=== PATIENT | female | born 1930 | race Asian ===

== ENCOUNTER 2017-07-11 00:06 | Inpatient (IN) | payer MEDICARE, MEDICAID ==
[~2017-07-11] VITALS: Ht 175.3 cm; Wt 68.0 kg
[2017-07-11] VITALS (15 sets, daily range): BP systolic 81–137; BP diastolic 51–89
[2017-07-11] MEDS ORDERED: Digoxin 0.5mg/2ml Inj IVP ONE ×2 (00:45→23:00)
[2017-07-11] MEDS ORDERED: Cefepime HCl 2 GM in NS 110 ML IV ONE (00:45)
[2017-07-11] MEDS ORDERED: Vancomycin 1 GM in NS 275 ML IVPB ONE (00:45)
[2017-07-11] MEDS ORDERED: Cefepime 2gm ONE (01:25)
--- NOTE | 2017-07-11 01:25 | Emergency Room Report ---
History of Present Illness General Chief Complaint: Dyspnea/Respdistress Source: Medical Record, EMS Present Illness HPI 86-year-old female, history of diabetes, hypertension, CVA with right-sided hemiparesis, bedbound, presenting with shortness of breath. EMS states when they arrived she was satting 92 on room air. Also was found to be in A. fib with RVR. No other history is able to be obtained. Patient is full code coming from [facility] Allergies: Coded Allergies: No Known Allergies (Unverified , 07/11/17) Patient History Past Medical History: see triage record Past Surgical History: none Pertinent Family History: none Last Menstrual Period: n/a Reviewed Nursing Documentation: PMH: Agreed, PSxH: Agreed Nursing Documentation-PMH Past Medical History: No Stated History Hx Hypertension: Yes Hx Diabetes: Yes - DM2 Hx Cerebrovascular Accident: Yes Review of Systems All Other Systems: limited - dementia Physical Exam Vital Signs Date Time Temp Pulse Resp B/P (MAP) Pulse Ox O2 Delivery O2 Flow Rate FiO2 07/11/17 00:06 120 16 111/75 95 Non-Rebreather 15.0 07/11/17 00:54 40 07/11/17 01:12 99.7 Sp02 EP Interpretation: abnormal General Appearance: other - resp distress, awake but not talking, Chronically Ill Respiratory: other - tachypneic, R sided crackles, retractions Cardiovascular #1: tachycardia, irregularly irregular Gastrointestinal: other - no grimace to deep palpation Neurologic: other - awake, not ff commands Procedures Critical Care Time Critical Care Time 40 minutes of CC time 86-year-old female shortness of breath VS: Tachycardic, hypotensive, tachypnea PLAN: IV access, labs, lactate, troponin, Blood/Urine Cx, Abx, IVF Anticipate admission to Tele vs. [facility] CC time also includes review of labs, review of EMR, discussion with family and paperwork from SNF, d/w hospitalist CC could include dosing of pressors, additional Abx CC time does not include procedures Medical Decision Making Diagnostic Impression: Primary Impression: Atrial fibrillation with rapid ventricular response Additional Impressions: Severe sepsis Respiratory distress ER Course 86-year-old female presenting with shortness of breath DDX: ACS, CHF Sepsis 2/2 UTI, PNA, bacteremia, will also consider intra-abdominal pathology such as colitis / diverticulitis / acalculous cholecystitis if no other course found but at this time abdomen soft, NT, ND. Plan: BiPAP Obtain labs including cbc, bmp, blood culture, blood gas, lactate, ua, ucx CXR EKG Broad spectrum ABX ER course: Patient requires BIPAP for respiratory support Patient initially hypotensive, fluids given, improved A. fib with RVR, was 150s, now improved to 100-110 with fluids however again went up to 130s-140s., dig given Given broad spectrum abx - vancomycin and cefepime Chest x-ray with right-sided pneumonia +afib 140s, cardizem given Sepsis Re-examination Time: 2:48 AM VS: Temp 98 HR 138 BP 131/84 RR 25 CVS: Atrial fibrillation Respiratory: Crackles right lung Peripheral pulses: 2+ radial Capillary refill: <2 seconds Skin exam: warm, dry, no rash, not mottled Disposition: Patient will admitted to [facility] Patient requires close monitoring of respiratory/hemodynamic status and continuation of IV antibiotics. D/W Hospitalist Dr Gama (as patients PMD is Dr Benedict) Please note that this Emergency Department Report was dictated using [employer] usher technology software, occasionally this can lead to erroneous entry secondary to interpretation by the dictation equipment. EKG Diagnostic Results EP Interpretation: Yes Rate: Tachycardic Rhythm: Atrial fibrillation ST Segments: No acute changes ASA given to patient: No Rhythm Strip EP Interpretation: Yes Rate: 110 Rhythm: Atrial fibrillation Chest X-ray CXR: Ordered: Yes 1 view Indication: Chest pain EP interpretation: Yes Interpretation: Right lower lobe pneumonia, pacemaker noted Impression: Right lower lobe pneumonia Electronically signed by Naeem Panda MD Laboratory Tests Test 07/11/17 00:51 07/11/17 02:07 07/11/17 03:52 White Blood Count 14.4 K/UL (4.8-10.8) H Red Blood Count 4.84 M/UL (4.20-5.40) Hemoglobin 15.1 G/DL (12.0-16.0) Hematocrit 44.1 % (37.0-47.0) Mean Corpuscular Volume 91 FL (80-99) Mean Corpuscular Hemoglobin 31.2 PG (27.0-31.0) H Mean Corpuscular Hemoglobin Concent 34.2 G/DL (32.0-36.0) Red Cell Distribution Width 11.3 % (11.6-14.8) L Platelet Count 366 K/UL (150-450) Mean Platelet Volume 7.3 FL (6.5-10.1) Neutrophils (%) (Auto) % (45.0-75.0) Lymphocytes (%) (Auto) % (20.0-45.0) Monocytes (%) (Auto) % (1.0-10.0) Eosinophils (%) (Auto) % (0.0-3.0) Basophils (%) (Auto) % (0.0-2.0) Prothrombin Time 11.3 SEC (9.30-11.50) Prothrombin Time INR 1.1 (0.9-1.1) PTT 35 SEC (23-33) H Sodium Level 127 MMOL/L (136-145) L Potassium Level 4.0 MMOL/L (3.5-5.1) Chloride Level 93 MMOL/L (98-107) L Carbon Dioxide Level 18 MMOL/L (21-32) L Anion Gap 16 mmol/L (5-15) H Blood Urea Nitrogen 27 mg/dL (7-18) H Creatinine 1.8 MG/DL (0.55-1.30) H Estimate Glomerular Filtration Rate mL/min (>60) Glucose Level 164 MG/DL (74-106) H Lactic Acid Level 5.30 mmol/L (0.66-2.22) H 4.50 mmol/L (0.66-2.22) H Calcium Level 7.9 MG/DL (8.5-10.1) L Total Bilirubin 0.6 MG/DL (0.2-1.0) Aspartate Amino Transferase (AST) 37 U/L (15-37) Alanine Aminotransferase (ALT) 24 U/L (12-78) Alkaline Phosphatase 78 U/L (46-116) Total Creatine Kinase 618 U/L (26-308) H Troponin I 0.036 ng/mL (0.000-0.056) Pro-B-Type Natriuretic Peptide 67395 pg/mL (0-125) H Total Protein 6.8 G/DL (6.4-8.2) Albumin 2.7 G/DL (3.4-5.0) L Globulin 4.1 g/dL Albumin/Globulin Ratio 0.7 (1.0-2.7) L Urine Color Pale yellow Urine Appearance Clear Urine pH 6 (4.5-8.0) Urine Specific [place] 1.010 (1.005-1.035) Urine Protein 1+ (NEGATIVE) H Urine Glucose (UA) Negative (NEGATIVE) Urine Ketones Negative (NEGATIVE) Urine Occult Blood 1+ (NEGATIVE) H Urine Nitrite Negative (NEGATIVE) Urine Bilirubin Negative (NEGATIVE) Urine Urobilinogen Normal MG/DL (0.0-1.0) Urine Leukocyte Esterase 1+ (NEGATIVE) H Urine RBC 0-2 /HPF (0 - 2) Urine WBC 2-4 /HPF (0 - 2) Urine Squamous Epithelial Cells Few /LPF (NONE/OCC) Urine Bacteria None /HPF (NONE) Last Vital Signs Date Time Temp Pulse Resp B/P (MAP) Pulse Ox O2 Delivery O2 Flow Rate FiO2 07/11/17 01:12 99.7 122 24 100/62 98 Bi-pap 15.0 40 Disposition: ADMITTED INPATIENT Condition: Serious Naeem Panda M.D. Jul 11, 2017 01:25
[2017-07-11 01:37] LABS: HEMATOCRIT 44.1 % (37.0-47.0); HEMOGLOBIN 15.1 G/DL (12.0-16.0); MEAN CORPUSCULAR VOLUME 91 FL (80-99); PLATELET COUNT 366 K/UL (150-450); RED BLOOD COUNT 4.84 M/UL (4.20-5.40); RED CELL DISTRIBUTION WIDTH 11.3 % (11.6-14.8); WHITE BLOOD COUNT 14.4 K/UL (4.8-10.8)
[2017-07-11 01:50] LABS: INR 1.1 (0.9-1.1)
[2017-07-11 01:56] LABS: ANION GAP 16 mmol/L (5-15); BLOOD UREA NITROGEN 27 mg/dL (7-18); CALCIUM 7.9 MG/DL (8.5-10.1); CARBON DIOXIDE 18 MMOL/L (21-32); CHLORIDE 93 MMOL/L (98-107); CREATININE 1.8 MG/DL (0.55-1.30); SODIUM 127 MMOL/L (136-145)
[2017-07-11 02:07] LABS: ALANINE AMINOTRANSFERASE 24 U/L (12-78); ALBUMIN 2.7 G/DL (3.4-5.0); ALBUMIN/GLOBULIN RATIO 0.7 (1.0-2.7); ALKALINE PHOSPHATASE 78 U/L (46-116); ASPARTATE AMINO TRANSFERASE 37 U/L (15-37); BILIRUBIN,TOTAL 0.6 MG/DL (0.2-1.0); CREATINE KINASE 618 U/L (26-308)
[2017-07-11] MEDS ORDERED: Vancomycin 1gm inj IVPB ONE (02:16)
[2017-07-11 02:25] LABS: APPEARANCE,URINE CLEAR; BILIRUBIN, URINE NEGATIVE (NEGATIVE); COLOR,URINE PALE YELLOW; GLUCOSE, URINE (UA) NEGATIVE (NEGATIVE); KETONES,URINE NEGATIVE (NEGATIVE); NITRITE,URINE NEGATIVE (NEGATIVE); PH,URINE 6 (4.5-8.0); PROTEIN,URINE 1+ (NEGATIVE); UROBILINOGEN,URINE NORMAL MG/DL (0.0-1.0)
[2017-07-11 02:50] LABS: LEUKOCYTE ESTERASE ,URINE 1+ (NEGATIVE)
[2017-07-11] MEDS ORDERED: dilTIAZem HCl 25mg/5ml Inj IVP ONE ×3 (03:45→06:30)
[2017-07-11] MEDS ORDERED: Morphine Sulfate 4mg/ml Inj IVP ONE (06:30)
[2017-07-11] MEDS ORDERED: ACETAMINOPHEN-1 EAC1 ORAL (06:50)
[2017-07-11] MEDS ORDERED: AMLODIPINE BESYL5 MG ORAL (06:50)
[2017-07-11] MEDS ORDERED: PLAVIX75 MG ORAL (06:51)
[2017-07-11] MEDS ORDERED: SIMVASTATIN20 MG ORAL (07:01)
[2017-07-11] MEDS ORDERED: IBUPROFEN600 MG ORAL (07:01)
[2017-07-11] MEDS ORDERED: METOPROLOL TAR100 M1 ORAL (07:01)
[2017-07-11] MEDS ORDERED: CREON DR 12,001 EACH PO (07:01)
[2017-07-11] MEDS ORDERED: NORCO 5-325 TA1 EACH ORAL (07:01)
[2017-07-11] MEDS ORDERED: Sodium Chloride 500ML 500 ML IV ONE ×2 (07:45→21:00)
[2017-07-11] MEDS ORDERED: Ascorbic Acid 500mg tab ORAL ONE (07:45)
[2017-07-11] MEDS ORDERED: Hydrocortisone 100mg Inj IV ONE (07:45)
--- NOTE | 2017-07-11 11:08 | Diagnostic Imaging Report ---
Indication: Dyspnea Comparison: None A single view chest radiograph was obtained. Findings: Patchy infiltrate at the right lung base demonstrated. Heart size is normal. The aorta is ectatic and calcified. There is a pacemaker on the left. Bones are slightly osteopenic. IMPRESSION: Right basilar infiltrate
[2017-07-11] MEDS: Sodium Chloride 500ML 550 ML IV SCH ×2 (14:55→18:51)
[2017-07-11] MEDS: Albuterol/Ipratropium 3ml neb HHN SCH ×3 (14:57→23:32)
--- NOTE | 2017-07-11 21:53 | Emergency Room Report ---
History of Present Illness General Chief Complaint: Dyspnea/Respdistress Source: Family Member Present Illness Allergies: Coded Allergies: No Known Allergies (Unverified , 07/11/17) Patient History Last Menstrual Period: n/a Now: No Nursing Documentation-[facility] Past Medical History: No Stated History Hx Hypertension: Yes Hx Diabetes: Yes - DM2 Hx Cancer: No Hx Gastrointestinal Problems: No Hx Cerebrovascular Accident: Yes Physical Exam Vital Signs Date Time Temp Pulse Resp B/P (MAP) Pulse Ox O2 Delivery O2 Flow Rate FiO2 07/11/17 00:06 120 16 111/75 95 Non-Rebreather 15.0 07/11/17 00:54 40 07/11/17 01:12 99.7 Procedures Central Line Central Line : Consent: Emergent Central Line Lumen: triple Maximal Sterile Barrier Tech: yes cap, yes mask, yes sterile gown, yes sterile gloves, yes large sterile sheet, yes hand hygiene, yes chlorhexidine prep Central Line Postion: femoral (R) Complications: none Central Line Post Position: sutured Attempts: One Patient Tolerated: Well Complications: None Intubation Intubation : Consent: Emergent Intubation Method: orotracheal Tube Size (cm): 8.0 Medications: Succinylcholine Breath Sounds after Intubation: equal Intubation Complications: no complications Post Intubation Xray: Yes Attempts: One Patient Tolerated: Well Complications: None Medical Decision Making Diagnostic Impression: Primary Impression: Atrial fibrillation with rapid ventricular response Additional Impressions: Respiratory distress Severe sepsis Last Vital Signs Date Time Temp Pulse Resp B/P (MAP) Pulse Ox O2 Delivery O2 Flow Rate FiO2 07/11/17 21:35 113 16 100 07/11/17 20:00 97.5 97/51 98 Bi-pap 07/11/17 19:20 15.0 Disposition: ADMITTED INPATIENT Condition: Serious Referrals: NON PHYSICIAN (PCP) PRICILLA KITCHEN D.O. Jul 11, 2017 21:53
[2017-07-11] MEDS ORDERED: Succinylcholine 20mg/ml 10ml vial IV ONE (22:00)
[2017-07-11] MEDS ORDERED: Cefepime HCl 1 GM in D5W 55 ML IVPB SCH (22:00)
[2017-07-11] MEDS ORDERED: Cefepime 1gm vial ONE (22:39)
[2017-07-12] VITALS: BP 97/51
[2017-07-12 00:15] VITALS: BP 59/51
[2017-07-12] MEDS ORDERED: Sodium Bicarbonate 100 ML in D5W 1000ml 1,000 ML IV SCH (00:15)
[2017-07-12 00:30] VITALS: BP 0/0
[2017-07-12] MEDS ORDERED: Tubing IV Secondary IV ONE (00:33)
[2017-07-12] MEDS ORDERED: Sodium Bicarbonate 8.4% 50ml Inj ONE (00:33)
[2017-07-12] MEDS ORDERED: NS 500ML ONE (00:33)
[2017-07-12] MEDS ORDERED: Succinylcholine 20mg/ml 10ml vial ONE (00:33)
[2017-07-12 00:45] VITALS: BP 0/0
[2017-07-12] MEDS ORDERED: Vancomycin 1gm in D5W 275ml IVPB SCH (02:00)
--- NOTE | 2017-07-12 02:15 | History and Physical Report ---
DATE OF ADMISSION: 07/11/2017 CONSULTING PHYSICIAN: Kleber Gama M.D. REQUESTING PHYSICIAN: Dickson Pederson M.D. REASON FOR EVALUATION: Sepsis, shock, lactic acidosis, and elevated natriuretic peptide assay. HISTORY OF PRESENT ILLNESS: This is a [place] female, age 86, who lived independently up until about a month ago. At that point, she required hospitalization at [facility] for urinary tract infection. She apparently required admission to a longterm facility subsequently for rehabilitation. Late last night, she developed cough, congestion, and shortness of breath and was transferred to this emergency room for further assessment. In the emergency room, she was noted to have a rapid heart rate and low blood pressure readings requiring placement of a central venous access in the right femoral region. She was noted to have respiratory distress and started on BiPAP. Further concerns included rapid atrial fibrillation. I have been asked to assist with further cardiovascular care. PAST MEDICAL HISTORY: Type 2 diabetes mellitus, osteoarthritis, degenerative disk disease, cerebrovascular disease with history of cerebrovascular accident, hypertension, and permanent pacemaker. MEDICATIONS: Prior to admission, reviewed and reconciled. ALLERGIES: None. FAMILY HISTORY: Noncontributory. SOCIAL HISTORY: Negative for smoking, alcohol, or substance abuse. REVIEW OF SYSTEMS: Presently, not obtainable from the patient. Pertinent data from available records and family members is outlined above. PHYSICAL EXAMINATION: VITAL SIGNS: Blood pressure 97/51, pulse 113, respirations 16, and afebrile. She is on BiPAP support. HEENT: Temporal wasting. Pale conjunctivae. Oropharynx clear. NECK: Supple. Jugular venous pressure is difficult to assess. Accessory muscle use is noted. LUNGS: With diminished breath sounds. Rhonchi and rales at the right. CARDIAC: Irregularly irregular rhythm. Rapid rate. Normal S1 and S2. No murmur. ABDOMEN: Soft and nontender. No guarding. No rebound. EXTREMITIES: No edema. Distal pulses palpable. Capillary refill significantly diminished. LABORATORY AND DIAGNOSTIC DATA: White count 14.4 and hemoglobin 15.1. ABG is pending. Sodium 127, potassium 4, bicarbonate 18, BUN 27 and creatinine 1.8. Lactic acid 5.3. Glucose 164. Troponin 0.036. Pro-natriuretic peptide 13,500. Urinalysis with only 2 to 4 white cells. Radiograph of the chest, patchy infiltrate at the right base with a pacemaker on the left side. IMPRESSION: 1. Acute respiratory insufficiency. 2. Hypoxia. 3. Healthcare-acquired pneumonia. 4. Possible aspiration. 5. Sepsis. 6. Shock. 7. Lactic acidosis. 8. paroxysmal atrial fibrillation. 9. Permanent pacemaker. 10. Acute on chronic diastolic congestive heart failure. 11. Condition is critical. 12. Prognosis guarded. PLAN: 1. BiPAP support. 2. Panculture. 3. Broad-spectrum antibiotics. 4. DVT and stress ulcer prophylaxes. 5. May need to digitalize for rate control. 6. Volume support by IV route. 7. If blood pressure fails to improve, may need to consider pressors. Kleber Gama M.D. DR: VELMA JOB#: [id number] CC: MUKUND
--- NOTE | 2017-07-12 02:15 | Consultation ---
DATE OF CONSULTATION: 07/11/2017 PULMONARY CONSULTATION CONSULTING PHYSICIAN: Michael Salmon M.D. REFERRING PHYSICIAN: Kleber Gama M.D. REASON FOR CONSULTATION: Respiratory insufficiency, dyspnea, and shortness of breath. HISTORY OF PRESENT ILLNESS: The patient is an 86-year-old female with history of diabetes and hypertension with CVA and focal weakness. The patient is essentially bed bound and presented with increasing shortness of breath. The patient is noted to be hypoxemic on arrival and also in rapid atrial fibrillation. The patient is seen and evaluated in the fpc. The [facility] chart as well as ER notes were reviewed. The patient does have multiple medical problems and was brought in with diagnoses of sepsis, urinary tract infection, and pneumonia. The patient was placed on BiPAP and now admitted to the [facility]. I was called to assist to evaluate further and to assist with respiratory management. The patient is unable to give much in the way of history at this time. The findings were reviewed. The events were fairly acute in nature. The patient had no clear evidence of aspiration event. PAST MEDICAL HISTORY: Notable for diabetes, history of CVA, history of atrial fibrillation, hypertension, and history of focal weakness. MEDICATIONS: Reviewed. ALLERGIES: Reviewed. SOCIAL HISTORY: Difficult to obtain, however, the patient . She is mostly bed bound. REVIEW OF SYSTEMS: Difficult to obtain due to her underlying dementia. PHYSICAL EXAMINATION: GENERAL: A well-developed female with advanced age. VITAL SIGNS: Blood pressure 110/66 , O2 saturation 93% to 100%, the patient is currently on BiPAP, heart rate is 110, and temperature 98.1. HEENT: Fairly negative. NECK: Supple. LUNGS: With scattered rhonchi. Moderate air entry. CARDIAC: S1 and S2. Tachycardic without murmurs, rubs, or gallops. Somewhat irregular. ABDOMEN: Soft, nontender, and nondistended. EXTREMITIES: No cyanosis or clubbing. No significant edema. NEUROLOGIC: No focal weakness. LABORATORY DATA: Reviewed. Sodium 137, BUN 27, and creatinine 1.8. Lactic acid 5.3. The patient's white count 14.4, hematocrit 44, and platelets of 366. Urinalysis with 4+ protein. IMPRESSION: 1. Respiratory failure. 2. Pulmonary edema. 3. Right basilar infiltrate. 4. Electrolyte imbalance. 5. Lactic acidosis. 6. Possible sepsis. 7. Leukocytosis, again suggestive of sepsis. RECOMMENDATION: Supportive care. Empiric antibiotics. Follow clinically. Monitor for change and recommend further. Consider further hydrocortisone as needed. Follow up arterial blood gases and acid-base exchange. When stable, we will hope to take the patient off BiPAP. We will obtain arterial blood gases at baseline and assess for change. Michael Salmon M.D. DR: CHINO JOB#: [id number] CC:
--- NOTE | 2017-07-12 08:54 | Diagnostic Imaging Report ---
Indication: Tube placement Comparison: 07/11/2017, 01:14 A single view chest radiograph was obtained. Findings: Interval endotracheal intubation, ET tube tip 2.9 cm above the casey. There is interval worsening of aeration of the right lung with development of patchy opacities involving the upper mid lung as well as the previously seen right lower lung opacity. There is no pneumothorax. No large pleural effusion. There is patchy opacity at the left base. The bones are diffusely demineralized. There is mild scoliosis in degenerative change of the spine. Heart size and mediastinal contours are stable. Atherosclerotic vascular calcification is again noted. Left-sided pacemaker unchanged in position. IMPRESSION: Satisfactory endotracheal intubation. Interval worsening of aeration with increased right-sided patchy airspace opacities, now involving the right lower, mid and upper lung. New patchy opacities at the left base.
[2017-07-12] MEDS ORDERED: Digoxin 0.5mg/2ml Inj IVP SCH (09:00)
[2017-07-12] MEDS ORDERED: Heparin 5000 units/ml inj SUBQ SCH (09:00)
--- NOTE | 2017-07-13 10:48 | Emergency Room Report ---
History of Present Illness General Chief Complaint: Dyspnea/Respdistress Source: Family Member Present Illness Allergies: Coded Allergies: No Known Allergies (Unverified , 07/11/17) Patient History Last Menstrual Period: n/a Now: No Nursing Documentation-[facility] Past Medical History: No Stated History Hx Hypertension: Yes Hx Diabetes: Yes - DM2 Hx Cancer: No Hx Gastrointestinal Problems: No Hx Cerebrovascular Accident: Yes Physical Exam Vital Signs Date Time Temp Pulse Resp B/P (MAP) Pulse Ox O2 Delivery O2 Flow Rate FiO2 07/11/17 00:06 120 16 111/75 95 Non-Rebreather 15.0 07/11/17 00:54 40 07/11/17 01:12 99.7 Procedures CPR/Code Blue CPR/Code Blue Narrative I was called to CODE BLUE last night this note is being put in at this time Upon arrival to the floor, patient had been previously intubated by myself central line had been placed patient was given one dose of epinephrine And upon arrival to that side patient has a palpable pulse Blood pressure 90/50 Secondary evaluation as no change from previous pupils are sluggish bilaterally Cardiac shows tachycardia Faint pulses diffusely Patient continues to be in acute critical condition And was transferred to ICU contact is made with the admitting physician patient will likely require pressors and further acute intervention, Medical Decision Making Diagnostic Impression: Primary Impression: Atrial fibrillation with rapid ventricular response Additional Impressions: Respiratory distress Severe sepsis Last Vital Signs Date Time Temp Pulse Resp B/P (MAP) Pulse Ox O2 Delivery O2 Flow Rate FiO2 07/12/17 00:45 0 0 0/0 0 Mechanical Ventilator 100 07/12/17 00:15 98.0 07/11/17 20:00 15.0 Disposition: ADMITTED INPATIENT Condition: Serious Referrals: NON PHYSICIAN (PCP) PRICILLA KITCHEN D.O. Jul 13, 2017 10:48
--- NOTE | 2017-07-15 13:30 | Discharge Summary ---
Discharge Summary Hospital Course Date of Admission Jul 11, 2017 at 01:42 Date of Discharge Jul 12, 2017 at 00:34 Admitting Diagnosis afib with rvr/resp distress HPI Toby Mora is a 86 year old female who was admitted on Jul 11, 2017 at 01:42 for Atrial Fibrilation With Rapid Ventricular Response Hospital Course summary #[id number] Discharge Discharge Disposition Patient Discharge Diagnoses: Discharge Instructions Discharge Instructions Special Instructions I have been assigned to complete a D/C Summary on this account. I was not involved in the patient management Roxanna Luo NP ([place]anchtein) Jul 15, 2017 13:30
--- NOTE | 2017-07-15 22:15 | Discharge Summary 2 SIG ---
SUMMARY DATE OF ADMISSION: 07/11/2017 DATE OF EXPIRATION: 07/12/2017 REASON FOR ADMISSION: 86-year-old female with history of hypertension, diabetes, and cerebrovascular accident with right-sided hemiparesis, presented with shortness of breath. The patient was found to be in atrial fibrillation with rapid ventricular response. The patient came from assisted facility with a Full Code status. Laboratory workup revealed lactic acid -5.3. Troponin negative. Pro-BNP -13,540. Sodium -127, BUN -27, and creatinine -1.8. WBC -14.4. The patient was initially hypotensive, low-grade fever -99.7, tachycardic -120, with EKG showing atrial fibrillation with rapid ventricular response. The patient required placement on the BiPAP for respiratory support. Fluids were given for hypotension. Digoxin and Cardizem administered for rate control. The patient was pancultured and after IV fluids, started on empiric antibiotics. Chest x-ray revealed right base infiltrate. The patient was admitted with diagnosis of severe sepsis, atrial fibrillation with rapid ventricular response, respiratory distress, lactic acidosis, and pneumonia with right base infiltrate, and possible aspiration. HOSPITAL STAY: The patient was admitted to telemetry. Cardiology and Pulmonary consults were requested. The patient sustained cardiopulmonary arrest, first happened on 07/11/2017 at 21:53. The patient was found to be in respiratory distress and hypotensive. The patient required to be intubated as well as the placement of a central line for pressor for hemodynamic support. Chest x-ray confirmed placement of ET tube . The patient was subsequently transferred to ICU. Ventilator support provided. Pulmonary toilet provided. The patient was on empiric antibiotic. Volume support and cardiorenal parameters were closely monitored. Prognosis was poor as per ski tow operator and fire control system installer. Pressors were provided to keep mean arterial pressure above 65. Initial ABG, right after intubation showed pH of 7.105 with bicarbonate of 9. Bicarbonate administered. Repeated in three hours after intubation, pH down to 6.968 and bicarb - 6.9. Renal parameters and electrolytes were closely monitored and replaced as needed. The patient had undergone total of three cardiopulmonary arrests. Last cardiopulmonary arrest was on 07/12/2017. The patient was in asystole. After few rounds of high quality CPR and medications, the patient showed no improvement and remained in asystole. Medical Assistant Secretary pronounced the patient at 00:40 on 07/12/2017. Cause of : cardiopulmonary arrest. FINAL DIAGNOSES: 1. Severe sepsis with shock. 2. Atrial fibrillation with rapid ventricular response. 3. Pneumonia with right base infiltrate. 4. Possible aspiration. 5. Lactic acidosis. 6. Acute on chronic diastolic congestive heart failure. 7. Pulmonary edema. 8. Permanent pacemaker. 9. Acute hypoxemic respiratory failure requiring intubation. 10. Status post cardiopulmonary arrest x3. 11. Electrolyte imbalances. Kleber Gama M.D. I have been assigned to dictate discharge summary on this account and I was not involved in the patient's management. Roxanna WillisBinghamton State HospitalAmy NAriellaPAriella DR: BEVERLEY JOB#: [id number] CC: MUKUND
== END 2017-07-12 00:34 | disposition expired | DRG 871 ==
LOC: EDBD 00:06 → EMR 00:10 → 2W 01:42 → EDBEDREQ 13:08 → 2W 15:55 → ICU 23:35
DX: A41.9 Sepsis, unspecified organism (principal); J18.9 Pneumonia, unspecified organism; J96.01 Acute respiratory failure with hypoxia; J69.0 Pneumonitis due to inhalation of food and vomit; R65.21 Severe sepsis with septic shock; I50.33 Acute on chronic diastolic (congestive) heart failure; I95.9 Hypotension, unspecified; E87.2 Acidosis; E87.8 Other disorders of electrolyte and fluid balance, not elsewhere classified; I69.351 Hemiplegia and hemiparesis following cerebral infarction affecting right dominant side; I48.0 Paroxysmal atrial fibrillation; E11.9 Type 2 diabetes mellitus without complications; Z74.01 Bed confinement status; I10 Essential (primary) hypertension; Z95.0 Presence of cardiac pacemaker
CPT/HCPCS: 36415; 36600; 71010; 80053; 81003; 82550; 82803; 82962; 83605; 83880; 84484; 85025; 85610; 85730; 87040; 87081; 92950; 93005; 94002; 94640; 94660; 94664; 99285; J0171; J7620